=== PATIENT | male | born 1970 | race Caucasian/White ===

== ENCOUNTER 2017-08-03 15:50 | Emergency (ER) | payer MEDICARE, MEDICAID ==
[~2017-08-03] VITALS: Ht 182.9 cm; Wt 72.6 kg
[2017-08-03] MEDS ORDERED: CARB1TAB21 PO (16:40)
[2017-08-03] MEDS ORDERED: DIVA250T47 PO (16:40)
[2017-08-03] MEDS ORDERED: LORA1TAB PO (16:40)
[2017-08-03] MEDS ORDERED: ZOLP5TAB8 PO (16:40)
[2017-08-03] MEDS ORDERED: FERR325T24 PO (16:40)
[2017-08-03] MEDS ORDERED: BENZ2TAB7 PO (16:40)
[2017-08-03] MEDS ORDERED: SERT50TA PO (16:40)
[2017-08-03] MEDS ORDERED: ATOR20TA PO (16:40)
[2017-08-03] MEDS ORDERED: POLY255P2 PO (16:40)
[2017-08-03] MEDS ORDERED: FLUD0.1T PO (16:40)
[2017-08-03] MEDS ORDERED: CLOZ100T32 PO (16:40)
[2017-08-03] MEDS ORDERED: DOCU-141 PO (16:40)
[2017-08-03] MEDS ORDERED: CHOL500050 PO (16:40)
--- NOTE | 2017-08-03 17:20 | NUR ---
[facility] COMPLETED, [facility] FOR TRANSPORT , ETA 45MIN.
--- NOTE | 2017-08-03 18:39 | NUR ---
FACILITY CALLED REPORT TO [facility], PT TRANSPORTED [facility], ACI/RX X1 GIVEN TO PT'S FATHER. PT TOOK ALL BELONGINGS.
[2017-08-03 18:40] VITALS: BP 125/78
== END 2017-08-03 18:41 | disposition home or self-care (01) ==
LOC: ER 15:53
DX: B35.6 Tinea cruris (principal); Z79.899 Other long term (current) drug therapy
CPT/HCPCS: 36415; 86592; A4663